=== PATIENT | male | born 1985 | race Caucasian/White ===

== ENCOUNTER 2017-06-04 12:55 | Emergency (ER) | payer OTHER ==
[~2017-06-04] VITALS: Ht 185.4 cm; Wt 115.0 kg
[~2017-06-04 12:55] MED LIST: ACETTAB3 OR; AMLODIPINE5 MG PO; AZITHROMYCIN250 MG PO; BENZONATATE200 MG PO; BOOSTRIX IM; CEPHALEXIN500 MG PO; CLARITHROMYC500 M1 PO; DEPO-MEDROL80 MG/ML IM; DOXYCYCL HYC100 MG OR; DOXYCYCL HYC100 MG PO; EC-NAPROSYN500 MG OR; FIORICET PO; FLEXERIL OR; FLEXERIL PO; FLEXERIL5 M1 PO; IMITREX25 MG PO; KEFLEX500 MG OR; KEFLEX500 MG PO; KETOROLAC60 MG/2 ML IJ; KETOROLAC60 MG/2 ML IM; LEVAQUIN750 MG PO; LISINOPRIL10 MG OR; LISINOPRIL10 MG PO; LISINOPRIL5 MG OR; LORTAB5 PO; MEDDOSEPAK OR; MOTRIN800 MG OR; MOTRIN800 MG/TAB PO; MUCINEX600 MG PO; NAPROSYN500 MG OR; NAPROSYN500 MG PO; NAPROXEN375 MG OR; NO MEDS; PHENERGAN12.5 MG/TA PO; PHENERGAN25 MG/ML IM; PREDNISONE10 MG PO; PROAIR HFA IN; PROMETHAZINE25 MG OR; PROMETHAZINE25 MG RE; ROBITUSSIN AC10 ML PO; SILVADENE1 % EX; SOLU-MEDROL125 MG IM; TESSALON PER100 MG PO; TUSSIONEX1 ML OR; TYLENOL # 31 TA1 PO; ULTRAM50 M1 PO; VENTOLIN HFA IN; VICODIN1 TAB PO; VICOPROFEN OR; ZITHROMAX250 MG OR; ZITHROMAX500 MG PO; ZPAK OR
[2017-06-04] MEDS ORDERED: BACTRIM DS1 TAB PO ×2 (13:53→14:04)
[2017-06-04 14:05] VITALS: BP 132/80
== END 2017-06-04 14:05 | disposition home or self-care (01) | DRG 603 ==
LOC: ED 12:55
DX: L02.01 Cutaneous abscess of face (principal)

== ENCOUNTER 2017-07-28 21:21 | Emergency (ER) | payer OTHER ==
[~2017-07-28] VITALS: Ht 185.4 cm; Wt 124.0 kg
[~2017-07-28 21:21] MED LIST changes: +BACTRIM DS1 TAB PO
[2017-07-28] MEDS ORDERED: NAPROSYN500 MG PO (23:13)
[2017-07-28 23:25] VITALS: BP 140/82
== END 2017-07-28 23:25 | disposition home or self-care (01) | DRG 74 ==
LOC: ED 21:21
DX: G58.9 Mononeuropathy, unspecified (principal); R20.0 Anesthesia of skin

== ENCOUNTER 2017-11-24 00:16 | Observation (INO) | payer OTHER ==
[~2017-11-24] VITALS: Ht 185.4 cm; Wt 111.0 kg
--- NOTE | 2017-11-24 00:23 | NUR ---
PT STRAIGHT BACK TO RM 10 FROM LOBBY.
[2017-11-24] MEDS ORDERED: DOXYCYC MONO100 M2 PO (00:40)
[2017-11-24] MEDS ORDERED: LISINOP/HCTZ1 TA2 PO (00:41)
[2017-11-24 00:59] LABS: HEMATOCRIT 42.6 % (39.0-50.0); HEMOGLOBIN 14.6 g/dl (14.0-18.0); IMMATURE GRANULOCYTES 0.6 % (0.0-1.0); MEAN CORPUSCULAR HGB 31.5 pG CALC (26.0-32.0); MEAN CORPUSCULAR HGB CONC 34.3 g/L CALC (32.0-36.0); NEUT# 8.59 thou/uL (1.82-7.42); RED BLOOD COUNT 4.63 mill/uL (4.70-6.10); RED CELL DISTRI WIDTH 12.7 % (11.5-15.5)
[2017-11-24 01:13] LABS: ALBUMIN 5.2 g/dL (3.2-5.0); ALKALINE PHOSPHATASE 87 u/l (38-126); AMYLASE 52 u/l (30-110); ANION GAP 20 (6-22 (CALC)); BILIRUBIN, TOTAL 0.5 mg/dL (0.0-1.4); BUN 15 mg/dL (9-20); BUN/CREATININE RATIO 17 (12-20 (CALC)); CALCIUM 10.5 mg/dL (8.4-10.2); CARBON DIOXIDE 19 mmol/l (22-30); CHLORIDE 103 mmol/l (95-108); CREATININE 0.9 mg/dL (0.7-1.3); GFR > 60 ML/MIN (>=60 (CALC)); GFR FOR AFR.AMER. > 60 ML/MIN (>=60 (CALC)); GLUCOSE 112 mg/dL (75-110); LIPASE 51 u/l (23-300); SGOT/AST 35 u/l (17-59); SGPT/ALT 30 u/l (21-72); SODIUM 139 mmol/l (137-146); TOTAL PROTEIN 7.8 g/dL (6.3-8.2)
[2017-11-24 01:14] LABS: INFLUENZA A NONE DETECTED (NONE DETECT); INFLUENZA B NONE DETECTED (NONE DETECT)
[2017-11-24 01:25] LABS: MYOGLOBIN 29 ng/mL (0 - 121)
[2017-11-24 01:27] LABS: BARBITURATES NEGATIVE (NEGATIVE); COCAINE NEGATIVE (NEGATIVE); METHADONE NEGATIVE (NEGATIVE); OXCYCODONE NEGATIVE (NEGATIVE); TETRAHYDROCANNABIONOL NEGATIVE (NEGATIVE); TRICYLIC ANTIDEPRESSANTS NEGATIVE (NEGATIVE)
--- NOTE | 2017-11-24 01:33 | NUR ---
PT RELATED CHEST PAIN 110 AFTER MEDS.
--- NOTE | 2017-11-24 01:55 | NUR ---
PT INFORMED OF ADMISSION. PT RELATED CHEST PAIN 11/08.
--- NOTE | 2017-11-24 02:04 | NUR ---
REPORT CALLED TO [facility]
--- NOTE | 2017-11-24 02:17 | NUR ---
PT TO 283 WITH RN ON TELE.
--- NOTE | 2017-11-24 04:00 | NUR ---
PT RESTING IN BED WITH EYES CLOSED. AROUSES EASILY TO VERBAL STIMULI. RESP ARE EVEN AND UNLABORED. NO DISTRESS NOTED. WILL CONTINUE TO MONITOR
[2017-11-24 07:40] VITALS: BP 117/71
--- NOTE | 2017-11-24 07:40 | NUR ---
ASSESSMENT IS COMPLETED: PT HAS BEEN RELAXING IN THE BED WITH NO DISTRESS NOTED. IV SITE IS FREE FROM REDNESS OR EDEMA. TELE MONITOR IN PLACE. PT WANTING TO GO HOME/.
[2017-11-24] MEDS ORDERED: ASPIRIN ADULT L81 M2 PO (10:07)
[2017-11-24 11:27] VITALS: BP 125/80
--- NOTE | 2017-11-24 12:44 | NUR ---
DISCHARGE INSTRUCTIONS GIVEN AND PT HAD ALREADY TOOK TELE MONITOR OFF. IV SITE DISCONTINEUD CATHETER INTACT. NO REDNESS OR EDEMA. Discharge instructions given. Patient verbalizes understanding of same. Discharged in stable condition via Ambulatory to Home with family. All belongings sent with pt.
== END 2017-11-24 12:34 | disposition home or self-care (01) | DRG 313 ==
LOC: ED 00:16 → ED-I 00:35 → ED 01:50 → MS2 01:51
PROVIDERS: Emergency Medicine; ADMIT Internal Medicine; ATTEND Internal Medicine
DX: R07.89 Other chest pain (principal); E66.3 Overweight; F17.210 Nicotine dependence, cigarettes, uncomplicated; I10 Essential (primary) hypertension; Z68.32 Body mass index [BMI] 32.0-32.9, adult
CPT/HCPCS: G0378

== ENCOUNTER 2018-09-23 02:01 | Emergency (ER) | payer SELFPAY ==
[~2018-09-23] VITALS: Ht 185.4 cm; Wt 115.9 kg
[~2018-09-23 02:01] MED LIST changes: +ACETAMIN500 M2 PO; +ASPIRIN ADULT L81 M2 PO; +BACLOFEN20 MG PO; +DOXYCYC MONO100 M2 PO; +LISINOP/HCTZ1 TA2 PO; +NORCO1 TA2 PO
[2018-09-23 02:50] LABS: HEMATOCRIT 43.7 % (39.0-50.0); HEMOGLOBIN 15.2 g/dl (14.0-18.0); IMMATURE GRANULOCYTES 0.3 % (0.0-5.0); MEAN CELL VOLUME 89.7 fL CALC (80.0-100.0); MEAN CORPUSCULAR HGB 31.2 pG CALC (26.0-32.0); MEAN CORPUSCULAR HGB CONC 34.8 g/L CALC (32.0-36.0); NEUT# 8.19 thou/uL (1.82-7.42); RED BLOOD COUNT 4.87 mill/uL (4.70-6.10); RED CELL DISTRI WIDTH 12.8 % (11.5-15.5)
[2018-09-23 02:59] LABS: INFLUENZA A POSITIVE (NONE DETECT); INFLUENZA B NONE DETECTED (NONE DETECT)
[2018-09-23] MEDS ORDERED: TAM75CAP PO (03:04)
[2018-09-23 03:22] VITALS: BP 115/73
== END 2018-09-23 03:22 | disposition home or self-care (01) | DRG 195 ==
LOC: ED 02:01
PROVIDERS: Family Medicine
DX: J10.1 Influenza due to other identified influenza virus with other respiratory manifestations (principal); R11.10 Vomiting, unspecified; R50.9 Fever, unspecified; M79.10 Myalgia, unspecified site; R05 Cough; F17.210 Nicotine dependence, cigarettes, uncomplicated

== ENCOUNTER 2019-10-06 12:12 | Emergency (ER) | payer OTHER ==
[~2019-10-06] VITALS: Ht 185.4 cm; Wt 134.0 kg
[~2019-10-06 12:12] MED LIST changes: +TAM75CAP PO
[2019-10-06] MEDS ORDERED: MEDDOSEPAK PO (12:33)
[2019-10-06] MEDS ORDERED: LOPID600 MG PO (12:39)
[2019-10-06] MEDS ORDERED: MELOXICAM15 MG PO (12:39)
[2019-10-06 12:40] VITALS: BP 158/85
[2019-10-06] MEDS ORDERED: OMEPRAZOLE DR20 MG PO (12:40)
[2019-10-06] MEDS ORDERED: AMLODIPINE BESY10 MG PO (12:40)
[2019-10-06] MEDS ORDERED: CYCLOBENZAPR10 MG PO (12:40)
[2019-10-06] MEDS ORDERED: TRAMADOL HCL50 MG PO (12:41)
[2019-10-06] MEDS ORDERED: LOSARTAN POTAS100 MG PO (12:41)
[2019-10-06] MEDS ORDERED: HYDROCHLOROT12.5 M1 PO (12:41)
== END 2019-10-06 12:40 | disposition home or self-care (01) | DRG 552 ==
LOC: ED 12:12
DX: M54.41 Lumbago with sciatica, right side (principal); I10 Essential (primary) hypertension; F17.200 Nicotine dependence, unspecified, uncomplicated

== ENCOUNTER 2023-02-11 21:10 | Emergency (ER) | payer OTHER ==
[~2023-02-11] VITALS: Ht 185.4 cm; Wt 133.0 kg
[~2023-02-11 21:10] MED LIST changes: +AMLODIPINE BESY10 MG PO; +CYCLOBENZAPR10 MG PO; +HYDROCHLOROT12.5 M1 PO; +LOPID600 MG PO; +LOSARTAN POTAS100 MG PO; +MEDDOSEPAK PO; +MELOXICAM15 MG PO; +OMEPRAZOLE DR20 MG PO; +TRAMADOL HCL50 MG PO; +ZPAK PO
[2023-02-11 22:31] VITALS: BP 127/79
[2023-02-11 22:46] VITALS: BP 121/71
[2023-02-11 23:01] VITALS: BP 119/71
[2023-02-11 23:16] VITALS: BP 131/84
[2023-02-11 23:31] VITALS: BP 131/80
[2023-02-11 23:46] VITALS: BP 126/75
[2023-02-12 00:01] VITALS: BP 137/79
[2023-02-12 00:16] VITALS: BP 129/81
[2023-02-12 00:31] VITALS: BP 145/75
[2023-02-12 00:51] VITALS: BP 156/89
[2023-02-12 01:01] VITALS: BP 129/72
[2023-02-12] MEDS ORDERED: PREDNISONE20 MG PO (01:07)
[2023-02-12] MEDS ORDERED: VENTOLIN HFA IN (01:07)
[2023-02-12 01:15] VITALS: BP 129/78
== END 2023-02-12 01:44 | disposition home or self-care (01) | DRG 203 ==
LOC: ED 21:10
DX: J45.909 Unspecified asthma, uncomplicated (principal); F17.210 Nicotine dependence, cigarettes, uncomplicated; I10 Essential (primary) hypertension; Z20.822 Contact with and (suspected) exposure to COVID-19